=== PATIENT | female | born 1940 | race Caucasian/White ===

== ENCOUNTER → 2019-04-25 13:09 | Outpatient (BNVA) | payer MEDICARE, OTHER, SELFPAY | PROVIDERS: Family Provider Nurse Practitioner; Visit Provider Emergency Medicine | DX: R07.89 Other chest pain (principal); I10 Essential (primary) hypertension | CPT/HCPCS: 80053; 85025 ==

== ENCOUNTER → 2022-06-12 09:29 | Outpatient (BNVA) | payer MEDICARE, OTHER, SELFPAY | PROVIDERS: Visit Provider Specialist | DX: M17.0 Bilateral primary osteoarthritis of knee (principal) | CPT/HCPCS: 20610; 73560; 73565; 99204; J7318 ==

== ENCOUNTER → 2023-08-20 10:47 | Outpatient (BNVA) | payer MEDICARE, OTHER, SELFPAY | PROVIDERS: PCP Family Medicine; Visit Provider Specialist | DX: M17.0 Bilateral primary osteoarthritis of knee | CPT/HCPCS: 20610; 73560; 73565; 99214; J7318 ==

== ENCOUNTER 2024-10-22 05:00 | Outpatient (RCR) | payer MEDICARE, OTHER, SELFPAY | END 2024-11-21 23:59 | disposition home or self-care (01) | LOC: MPT 05:00 | PROVIDERS: PCP Family Medicine; Visit Provider Nurse Practitioner | DX: M54.9 Dorsalgia, unspecified (principal) | CPT/HCPCS: 97110; G0283 ==

== ENCOUNTER → 2024-11-01 08:51 | Outpatient (BNVA) | payer MEDICARE, OTHER, SELFPAY | PROVIDERS: PCP Family Medicine; Visit Provider Nurse Practitioner | DX: M17.11 Unilateral primary osteoarthritis, right knee (principal); M54.9 Dorsalgia, unspecified; G89.29 Other chronic pain | CPT/HCPCS: 73560; 73565; 99214 ==

== ENCOUNTER → 2024-11-08 10:02 | Outpatient (BNVA) | payer MEDICARE, OTHER, SELFPAY | PROVIDERS: PCP Family Medicine; Visit Provider Anesthesiology Pain Medicine | DX: M54.50 Low back pain, unspecified (principal); M16.9 Osteoarthritis of hip, unspecified; M54.9 Dorsalgia, unspecified; M79.604 Pain in right leg | CPT/HCPCS: 72110; 73521; 99204 ==

== ENCOUNTER 2024-11-12 10:25 | Outpatient (CLI) | payer MEDICARE, OTHER, SELFPAY ==
--- NOTE | 2024-11-12 11:00 | MR_ITS ---
WS: [id number] MRI LUMBAR SPINE NONCONTRAST TECHNIQUE: Sagittal T1, T2 and STIR imaging. Axial T1 and T2 imaging. CLINICAL INFORMATION: M54.16 - Radiculopathy, lumbar region COMPARISON: None. FINDINGS: Mild lumbar curve. No acute compression. Slight anterolisthesis L3 on L4 and L4 on L5. Incidental Tarlov cyst in the sacrum. L1-L2: Mild disc bulging. Slight narrowing of the LEFT subarticular recess. Mild facet arthropathy. L2-L3: Mild disc bulging. Mild central canal stenosis. Narrowing of the RIGHT subarticular recess. Mild facet arthropathy. L3-L4: Moderate central canal stenosis with impingement on the subarticular recess bilaterally. Mild LEFT foraminal narrowing. Moderate facet arthropathy. L4-L5: Mild disc bulging with impingement the RIGHT subarticular recess and traversing RIGHT L5 nerve root. Moderate facet arthropathy. Mild to moderate central canal stenosis. Mild RIGHT foraminal narrowing. L5-S1: Mild disc bulging with slight impingement on the RIGHT S1 nerve root. Mild facet arthropathy. Spinal canal and foramen are patent. Visualized pelvic bony structures: Normal. Paravertebral soft tissues: Normal. MR/MR lumbar spine wo con* [id number] IMPRESSION: 1. Moderate central canal stenosis L3-4. Mild to moderate central canal stenos is L4-5 with impingement on the RIGHT subarticular recess and traversing RIGHT L5 nerve root. 2. Mild central canal stenosis L2-3 with narrowing of the RIGHT greater than L EFT subarticular recess. 3. Moderate facet arthropathy L3-L4 and L4-L5. 4. Slight anterolisthesis L3 on L4 and L4 on L5.
== END 2024-11-12 10:26 | disposition home or self-care (01) ==
LOC: RAD 10:26
PROVIDERS: PCP Family Medicine; Visit Provider Anesthesiology Pain Medicine
DX: M47.26 Other spondylosis with radiculopathy, lumbar region (principal); M48.061 Spinal stenosis, lumbar region without neurogenic claudication
CPT/HCPCS: 72148

== ENCOUNTER 2024-11-22 05:00 | Outpatient (RCR) | payer MEDICARE, OTHER, SELFPAY | END 2024-12-21 23:59 | disposition home or self-care (01) | LOC: MPT 05:00 | PROVIDERS: PCP Family Medicine; Visit Provider Nurse Practitioner | DX: M54.9 Dorsalgia, unspecified (principal) | CPT/HCPCS: 97110; 97140; G0283 ==

== ENCOUNTER → 2024-12-21 09:35 | Outpatient (BNVA) | payer MEDICARE, OTHER, SELFPAY | PROVIDERS: PCP Family Medicine; Visit Provider Anesthesiology Pain Medicine | DX: M54.9 Dorsalgia, unspecified (principal); M47.816 Spondylosis without myelopathy or radiculopathy, lumbar region; M48.061 Spinal stenosis, lumbar region without neurogenic claudication; M79.604 Pain in right leg | CPT/HCPCS: 99214 ==

== ENCOUNTER → 2025-01-31 09:35 | Outpatient (BNVA) | payer MEDICARE, OTHER, SELFPAY | PROVIDERS: PCP Family Medicine; Visit Provider Specialist | DX: M17.11 Unilateral primary osteoarthritis, right knee (principal) | CPT/HCPCS: 99213 ==